=== PATIENT | male | born 1975 | race Two or more races ===

== ENCOUNTER 2021-12-28 19:57 | Emergency (ER) | payer OTHER ==
[~2021-12-28] VITALS: Ht 175.3 cm; Wt 93.9 kg
[~2021-12-28 19:57] MED LIST: BENICAR20 MG; VISTARIL50 MG PO
[2021-12-28] MEDS ORDERED: METOPROLOL SUCC50 MG (20:06)
[2021-12-28] MEDS ORDERED: ZETIA10 MG PO (20:07)
[2021-12-28] MEDS ORDERED: COZAAR25 MG (20:07)
== END 2021-12-28 22:18 | disposition home or self-care (01) ==
LOC: ER 19:57
DX: K64.9 Unspecified hemorrhoids (principal)

== ENCOUNTER 2022-01-08 08:09 | Inpatient (IN) | payer OTHER ==
[~2022-01-08 08:09] MED LIST changes: +COZAAR25 MG; +METOPROLOL SUCC50 MG; +ZETIA10 MG PO
[2022-01-08] MEDS ORDERED: GABAPENTIN300 M2 PO (08:39)
[2022-01-08] MEDS ORDERED: AMOX1TAB5 (08:39)
--- NOTE | 2022-01-08 08:40 | NUR ---
SE RECIBE PTE ALERTO Y ORIENTADO X3. PTE REFIERE SANGRADO RECTAL CONTINUO CON EMPEORAMIENTO EN LO SULTIMOS 2 ALBARRAN. PTE VERBALIZA ESTAR EN TRATAMIENTO DE ANTIBIOTICOS, AMOX-CLAV 800-125MG, POR ORDEN . PTE TOLERA ESTAR SENTADO Y CAMINANDO. SE DANISH SV Y SE UBICA.
--- NOTE | 2022-01-08 09:52 | NUR ---
SE RECIBE PTE ALERTA ORIENTADO X 3. SE KARLA MUESTRAS DE LABORATORIO USANDO MEDIDAS ASEPTICAS, SE ADMINISTRAN MEDICAMENTOS BROWN ORDEN MEDICA. SE ORIENTA PACIENTE SOBRE IMPORTANCIA DE [place] MEDICO. PENDIENTE CT ABDOMINO PELVICO.
[2022-01-09] MEDS ORDERED: HYFIBER WI12 GM/302 (10:49)
[2022-01-09] MEDS ORDERED: LOPRESSOR25 MG (10:50)
[2022-01-09] MEDS ORDERED: LOSARTAN POTASS50 MG (10:50)
[2022-01-10] MEDS ORDERED: INTESTINEX680 M1 PO (09:18)
[2022-01-10] MEDS ORDERED: DERMOPLAST PAIN78 GM TOP (09:18)
[2022-01-10] MEDS ORDERED: PERCOCET 5-3251 EACH PO (09:18)
[2022-01-10] MEDS ORDERED: KETO10TA2 PO (09:18)
== END 2022-01-10 10:52 | disposition home or self-care (01) | DRG 348 ==
LOC: ER 08:09 → SURG 13:53
PROVIDERS: ADMIT Surgery; ATTEND Surgery
PROC: 06BY0ZC Excision of Hemorrhoidal Plexus, Open Approach (ICD-10-PCS; principal; 2022-01-08 15:00)
DX: K64.3 Fourth degree hemorrhoids (principal); K62.5 Hemorrhage of anus and rectum; K62.2 Anal prolapse

== ENCOUNTER 2023-03-06 06:15 | Day surgery (SDC) | payer OTHER ==
[2023-02-28 12:36] LABS: URINE APPEARANCE Clear; URINE BILIRRUBIN Negative (NEGATIVE); URINE BLOOD Negative; URINE COLOR Yellow; URINE GLUCOSE Negative (NEGATIVE); URINE LEUKOCYTE Moderate; URINE NITRATE Negative; URINE PROTEIN Negative (NEGATIVE); URINE UROBILINOGEN 0.2 E.U./dl
[2023-02-28 12:40] LABS: URINE BACTERIA 25.1 uL (0.0-1933); URINE EPITHELIAL CELLS 1.8 uL (0.0-38.8); URINE WBC 54.8 uL (0.0-23.2)
[2023-02-28 12:56] LABS: HEMATOCRIT 38.6 % (39.0-48.0); HEMOGLOBIN 13.5 g/dL (13-16.00); MEAN CELL VOLUME 85.4 fL (80.0-100.00); MEAN CORPUSCULAR HEMOGLOBIN 29.8 pg (27.00-32.0); MEAN CORPUSCULAR HGB CONC 34.8 g/dl (32.0-36.0); PLATELET COUNT 228 K/uL (150-450); RED BLOOD COUNT 4.52 M/uL (4.00-6.00); RED CELL DISTRIBUTION WIDTH 14.7 % (11.5-14.5)
[2023-02-28 13:07] LABS: URINE RBC 0.8 uL (0.0-20.8)
[2023-02-28 13:16] LABS: INR 0.98; PARTIAL THROMBOPLASTIN TIME 28.3 SECONDS (22.0-34.0); PROTHROMBIN TIME 10.3 SECONDS (9.0-11.5)
[2023-02-28 13:21] LABS: ALBUMIN 3.9 gm/dL (3.4-5.0); BILIRUBIN TOTAL 0.37 mg/dL (0.3-1.2); CALCIUM 8.8 mg/dL (8.5-10.1); CREATININE SERUM 0.91 mg/dL (0.70-1.30); GFR 88.55; GLOBULINA 3.4 G/DL (2.4-3.5); POTASSIUM 4.21 mEq/L (3.5-5.1); TOTAL PROTEIN 7.3 gm/dL (6.4-8.2)
[~2023-03-06 06:15] MED LIST changes: +AMOX1TAB5; +DERMOPLAST PAIN78 GM TOP; +GABAPENTIN300 M2 PO; +HYFIBER WI12 GM/302; +INTESTINEX680 M1 PO; +KETO10TA2 PO; +LOPRESSOR25 MG; +LOSARTAN POTASS50 MG; +PERCOCET 5-3251 EACH PO
[2023-03-06] MEDS ORDERED: NEURONTIN300 MG PO (08:54)
[2023-03-06] MEDS ORDERED: PERCOCET 5-3251 EACH PO (08:54)
[2023-03-06] MEDS ORDERED: KETO10TA2 PO (08:55)
== END 2023-03-06 14:25 | disposition home or self-care (01) ==
LOC: CIR.AMB 06:15
PROVIDERS: ATTEND Surgery
DX: K60.1 Chronic anal fissure (principal); K62.5 Hemorrhage of anus and rectum; K64.8 Other hemorrhoids; K64.4 Residual hemorrhoidal skin tags; I10 Essential (primary) hypertension; Z20.822 Contact with and (suspected) exposure to COVID-19; E78.5 Hyperlipidemia, unspecified